=== PATIENT | female | born 1990 | race Caucasian/White ===

== ENCOUNTER 2018-06-20 13:54 | Outpatient (CLI) | payer BC ==
--- NOTE | 2018-06-20 16:15 | ULT ---
GALLBLADDER ULTRASOUND: HISTORY: Right upper quadrant pain. FINDINGS: Real-time imaging of the right upper quadrant was performed. This shows multiple echogenic foci with in the gallbladder, consistent with gallstones. The common duct is 3 mm. The technologist reports a negative ultrasound Aguilar sign. The liver parenchymal is unremarkable. The liver measures 14 cm in length. The pancreas is obscured . The right kidney is normal in size and not obstructed. IMPRESSION: Multiple cholelithiasis, with a normal caliber common duct. POS: MATIASH
== END 2018-06-20 13:55 | disposition home or self-care (01) ==
LOC: SCSULT 13:54
PROVIDERS: ATTEND Family Medicine
DX: R10.11 Right upper quadrant pain (principal); K80.20 Calculus of gallbladder without cholecystitis without obstruction
CPT/HCPCS: 76705

== ENCOUNTER 2018-06-28 07:50 | Day surgery (SDC) | payer BC ==
--- NOTE | 2018-06-26 19:06 | HP ---
HISTORY OF PRESENT ILLNESS: Ms. Britney Foote is a 27-year-old female management for , gr avida 1, para 1. Recently diagnosed with celiac disease, but has had biliary type symptoms for sever al years. She had a particularly severe episode of epigastric pain with back radiation, nausea, pres ented to Urgent Care. Ultrasound confirming gallstones, normal bile duct caliber on 06/19/2018. LABORATORY DATA: White count 8, hemoglobin 13. Chemistries normal. Base met normal obtained. Plan is for a laparoscopic cholecystectomy as an outpatient in the next 48 hours. She understands ri sks of infection, bleeding, visceral and biliary injury and consents. ALLERGIES: None. TOBACCO: None. ALCOHOL: None. PAST SURGICAL HISTORY: Tonsillectomy, adenoidectomy. PAST MEDICAL HISTORY: Celiac disease, recently diagnosed. REVIEW OF SYSTEMS: Ten point noncontributory. FAMILY HISTORY: Noncontributory. PHYSICAL EXAMINATION: VITAL SIGNS: Weight 177 pounds, 65 inches, 29 BMI, 107/53, 66, 98.6 degrees. HEENT: Unremarkable. Sclerae nonicteric. SKIN: Nonjaundiced. NECK: Axilla, groins without lymphadenopathy. Ankles without edema. LUNGS: Clear to auscultation. CARDIAC: Regular rate and rhythm. No murmur or gallop. ABDOMEN: Soft. Mild tenderness in the right upper quadrant with mild guarding, no peritoneal signs, no rebound. EXTREMITIES: Unremarkable. ASSESSMENT: Cholecystitis, chronic, cholelithiasis. Recommend laparoscopic video cholecystectomy. Risk of infection, bleeding, visceral and biliary injury explained. Questions answered. PLAN: Laparoscopic cholecystectomy in the next 48 hours.
[2018-06-27 09:50] VITALS: BMI 29.4
[2018-06-28] MEDS ORDERED: Bupivacaine HCl 0.5%/Epinephrine 1:200,000/PF 30 ml Vial ONE (08:21)
[2018-06-28] MEDS ORDERED: Ketorolac Tromethamine 30 MG/ML VIAL ONE (08:48)
[2018-06-28] MEDS ORDERED: Levofloxacin 500 mg/D5W 100 ml Premix Bag ONE (08:48)
[2018-06-28] MEDS ORDERED: Midazolam HCl 2 mg/2 ml Vial ONE (08:49)
[2018-06-28 09:18] LABS: BHCG - Serum Negative (NEGATIVE); Pregs Control Background? CLEAR/WHITE (CLR/WHITE); Pregs Control Bar Appear? YES (CONTROL BAR)
[2018-06-28] MEDS ORDERED: Fentanyl 250 MCG/5 ML VIAL ONE (10:29)
--- NOTE | 2018-06-28 11:22 | OP ---
DATE OF OPERATION: 06/28/2018 PREOPERATIVE DIAGNOSES: Chronic cholecystitis, cholelithiasis, cystic duct obstruction. POSTOPERATIVE DIAGNOSES: Chronic cholecystitis, cholelithiasis, cystic duct obstruction. PROCEDURE: Laparoscopic video cholecystectomy. SURGEON: Abdelrahman Ta M.D. ANESTHESIA: General. Local 0.5% Marcaine with epinephrine, 30 mL total volume mixture used. PROCEDURE IN DETAIL: The patient was taken to the operating room where under general anesthesia, abd omen was prepared with ChloraPrep, draped in routine fashion. Local anesthetic to prevent skin and s ubcutaneous tissue about all port sites. Infraumbilical incision made. Pneumoperitoneum to 15 mmHg obtained with the Veress needle, replacing it with a 5 port and video laparoscope inserted. Right younger bxiphoid incision made and 11 port placed. Right subcostal incision made mid clavicular anterior axi llary lines and 5 ports placed. Fundus of the gallbladder grasped and reflected cephalad. Liver beba eared to be normal. There were a few omental adhesions to the liver bed, but I did not have to take them down. Infundibulum grasped and reflected laterally. Cystic artery and duct dissected free. Cr itical view obtained. Cystic artery and duct doubly clipped proximally, divided, and gallbladder dis sected free from the liver bed obtaining good hemostasis prior to division of final peritoneal attach ments. Gallbladder and multiple stones removed and submitted to Pathology. Good hemostasis ensured with the cautery. Irrigant and pneumoperitoneum evacuated. All this instruments removed and all ski n incisions approximated with interrupted subdermal 4-0 Monocryl and DermaGlue applied.
[2018-06-28] MEDS ORDERED: traMADol HCl 50 MG TAB ONE (12:05)
[2018-06-28] MEDS ORDERED: Lidocaine 1% PF 5 ML VIAL ONE (15:31)
[2018-06-28] MEDS ORDERED: PROPOFOL 200 MG/20 ML VIAL ONE (15:31)
[2018-06-28] MEDS ORDERED: Succinylcholine Chloride 20 MG/ML 10 ml SYRINGE FS ONE (15:31)
[2018-06-28] MEDS ORDERED: Ondansetron HCl/PF 4 MG/2 ML Vial ONE (15:31)
[2018-06-28] MEDS ORDERED: Dexamethasone 20 MG/5 ML VIAL ONE (15:31)
[2018-06-28] MEDS ORDERED: Glycopyrrolate 0.2 MG/ML 5 ML SYRINGE ONE (15:31)
[2018-06-28] MEDS ORDERED: Vecuronium 10 MG VIAL ONE (15:31)
== END 2018-06-28 12:37 | disposition home or self-care (01) ==
LOC: SDC 07:50
PROVIDERS: ATTEND Specialist
PROC: 0FT44ZZ Resection of Gallbladder, Percutaneous Endoscopic Approach (ICD-10-PCS; principal; 2018-06-28)
DX: K80.10 Calculus of gallbladder with chronic cholecystitis without obstruction (principal)
CPT/HCPCS: 84703; 88304; J0131; J0670; J1100; J1885; J1956; J2001; J2250; J2405; J2704; J3010

== ENCOUNTER 2018-08-17 12:39 | Outpatient (CLI) | payer BC ==
--- NOTE | 2018-08-17 15:54 | RAD ---
HYSTEROSALPINGOGRAM: 08/17/18 INDICATION: Menstrual abnormality. FLUORO TIME: 0.8 minutes. TOTAL EXPOSURE: 488 Gy*m2. TECHNIQUE AND FINDINGS: Informed consent was obtained. The patient on day seven following her day of menstrual period. The pa kate has had no sexual intercourse since her menstrual period. Patient was not actively spotting leonor or to the examination. The patient was placed supine on the fluoroscopic table and then eventually pl aced in the lithotomy position. A speculum was placed. The cervix was then sterilized with betadine s olution. A alaniz device was guided down into the cervical os to demonstrate patency of the internal ce rvical os. Following this, the catheter was then placed within the uterine cavity and a small balloon was deployed. Once the catheter was fixated within the uterine cavity, the patient was then placed u nder the fluoro table and real time fluoroscopic examination was performed with spot images obtained. There was retrograde opacification of the uterine cavity demonstrating no definite filling defect. There was a smooth invagination noted along the superior margion of the endometrial canal. There was contrast spillage into the fallopian tubes bilaterally freely with spillage into the peritoneal cavit y. The catheter was then removed from the uterus. The vaginal speculum was then removed. Patient zeny rated the procedure without difficulty. IMPRESSION: Normal HSG. Arcuate uterus. POS: ABHISHEK
== END 2018-08-17 12:40 | disposition home or self-care (01) ==
LOC: RAD 12:39
PROVIDERS: ATTEND Family Medicine
DX: N92.6 Irregular menstruation, unspecified (principal); Q51.810 Arcuate uterus
CPT/HCPCS: 58340; 74740

== ENCOUNTER 2019-08-07 08:04 | Inpatient (IN) | payer BC ==
[2019-08-07 23:19] VITALS: BMI 36.1
[2019-08-07] MEDS ORDERED: Lidocaine 1% (PF) 30 ML VIAL SC PRN (23:24)
[2019-08-07] MEDS ORDERED: Ondansetron PF 4 MG/2 ML Vial IVP PRN (23:24)
[2019-08-07] MEDS ORDERED: NS w/ Oxytocin 10 units 500 ML IV SCH ×2 (23:24)
[2019-08-07] MEDS ORDERED: Docusate 100 MG CAP PO PRN (23:24)
[2019-08-07] MEDS ORDERED: Butorphanol Tartrate 1 MG/ML VIAL SLOW IVP PRN (23:24)
[2019-08-07] MEDS ORDERED: Diphenoxylate HCl/Atropine Tablet PO PRN ×2 (23:24)
[2019-08-07] MEDS ORDERED: Misoprostol 200 MCG TAB PR PRN (23:24)
[2019-08-07] MEDS ORDERED: Zolpidem Tartrate 5 MG TAB PO PRN (23:24)
[2019-08-07] MEDS ORDERED: HYDROcodone/Acetaminophen 5/325 mg Tablet PO PRN ×2 (23:24)
[2019-08-07] MEDS ORDERED: Acetaminophen 500 MG TAB PO PRN (23:24)
[2019-08-07] MEDS ORDERED: Promethazine HCl 25 MG/ML VIAL IM PRN (23:24)
[2019-08-07] MEDS ORDERED: NS / Oxytocin 40 units/1000ml 1,000 ML IV PRN (23:24)
[2019-08-07] MEDS ORDERED: hydrALAZINE 20 MG/ML VIAL SLOW IVP PRN (23:24)
[2019-08-07] MEDS ORDERED: Ibuprofen 800 MG TAB PO PRN (23:24)
[2019-08-07] MEDS: Lactated Ringer's 1,000 ML IV SCH (23:38)
[2019-08-07 23:47] LABS: Hemoglobin 12.5 g/dL (12.0-16.0); Mean Corpuscular HGB CONC 35.7 g/dL (32.0-36.0); Mean Corpuscular Hemoglobin 32.3 pg (27.0-31.0); Mean Corpuscular Volume 90.4 fL (78.0-98.0); Mean Platelet Volume 9.9 fL (7.4-10.4); Platelet Count 115 thou/uL (130-400); RBC Distribution Width 12.3 % (11.5-14.5); Red Blood Cell (RBC) Count 3.88 mill/uL (4.20-5.40); White Blood Cell (WBC) Count 10.3 thou/uL (4.8-10.8)
[2019-08-07] MEDS: Misoprostol 100 MCG TAB VAG SCH (23:51)
[2019-08-07] MEDS ORDERED: Penicillin G Potassium 5 MILL.UNITS in Sodium Chloride 0.9% 100 ML IVPB SCH (23:59)
[2019-08-08 00:24] LABS: Hep B Surf Ag Non-Reactive S/CO (NonReactive); Syphilis Antibody Nonreactive (Nonreactive); Syphilis Antibody Index 0.05 S/CO (<1.00 Non-Reactive)
[2019-08-08] MEDS ORDERED: Fentanyl 4 mcg/Bup 0.1% Cadd 100 ML ONE (03:11)
[2019-08-08] MEDS: Lactated Ringer's 1,000 ML IV SCH (03:51)
[2019-08-08] MEDS ORDERED: Lactated Ringer's 500 ML IV PRN (04:20)
[2019-08-08] MEDS ORDERED: Naloxone HCl 0.4 mg/ml Vial IVP PRN ×2 (04:20)
[2019-08-08] MEDS ORDERED: Promethazine HCl 25 MG/ML VIAL IM PRN (04:20)
[2019-08-08] MEDS ORDERED: ePHEDrine/0.9% NaCl/PF SYRINGE 50 mg/10 ml SLOW IVP PRN (04:20)
[2019-08-08] MEDS ORDERED: Ondansetron PF 4 MG/2 ML Vial IVP PRN ×2 (04:20→10:00)
[2019-08-08] MEDS ORDERED: Acetaminophen 325 MG TAB PO PRN (04:20)
[2019-08-08] MEDS ORDERED: diphenhydrAMINE 50 MG/ML VIAL IVP PRN (04:20)
[2019-08-08] MEDS: Penicillin G 2.5 MILL.units 2.5 MILL.UNITS in Premix Bag 1 BAG IVPB SCH ×2 (04:29→08:47)
[2019-08-08] MEDS ORDERED: Communication Order-Pharmacy FS SCH (04:30)
[2019-08-08] MEDS ORDERED: Fentanyl 4 mcg/Bupivacaine 0.1% Cassette 100 ML EPIDURAL SCH (04:30)
[2019-08-08] MEDS: Misoprostol 100 MCG TAB VAG SCH ×2 (04:39→07:42)
[2019-08-08] MEDS ORDERED: diphenhydrAMINE 25 MG CAP PO PRN (10:00)
[2019-08-08] MEDS ORDERED: Acetaminophen/Codeine 30-300mg Tablet PO PRN ×2 (10:00)
[2019-08-08] MEDS ORDERED: Benzocaine-Menthol 82.5 ML CAN TOP PRN (10:00)
[2019-08-08] MEDS ORDERED: Adacel (T-DAP) 0.5 ML SYRINGE IM ONE (10:00)
[2019-08-08] MEDS ORDERED: Lanolin Ointment 7 GM TUBE TOP PRN (10:00)
[2019-08-08] MEDS ORDERED: Milk Of Magnesia 30 ML UDCUP PO PRN (10:00)
[2019-08-08] MEDS ORDERED: hydrALAZINE 20 MG/ML VIAL SLOW IVP PRN (10:00)
[2019-08-08] MEDS ORDERED: Zolpidem Tartrate 5 MG TAB PO PRN (10:00)
[2019-08-08] MEDS ORDERED: Preparation H Ointment 28 GM TUBE PR PRN (10:00)
[2019-08-08] MEDS ORDERED: Bisacodyl 10 MG SUPP PR PRN (10:00)
[2019-08-08] MEDS ORDERED: NS / Oxytocin 40 units/1000ml 1,000 ML IV SCH (10:00)
[2019-08-08] MEDS ORDERED: Misoprostol 200 MCG TAB VAG PRN (10:00)
[2019-08-08] MEDS: Ibuprofen 800 MG TAB PO SCH ×2 (14:50→21:10)
[2019-08-08] MEDS: Docusate Calcium (SURFAK) 240 MG CAP PO SCH (21:10)
[2019-08-08] MEDS: Ferrous Sulfate 325 MG TAB PO SCH (22:27)
[2019-08-09] MEDS: Ibuprofen 800 MG TAB PO SCH ×3 (05:23→14:17)
[2019-08-09] MEDS: Ferrous Sulfate 325 MG TAB PO SCH ×2 (07:56→17:25)
[2019-08-09] MEDS: Misoprostol 100 MCG TAB VAG SCH (08:51)
[2019-08-09] MEDS: Penicillin G 2.5 MILL.units 2.5 MILL.UNITS in Premix Bag 1 BAG IVPB SCH ×2 (08:51→08:52)
[2019-08-09 08:56] VITALS: BP 98/55; TEMP 98
[2019-08-09] MEDS: Prenatal Vitamin 1 TAB PO SCH ×2 (09:31→09:32)
[2019-08-09] MEDS: Docusate Calcium (SURFAK) 240 MG CAP PO SCH (09:31)
== END 2019-08-09 18:15 | disposition home or self-care (01) | DRG 806 ==
LOC: L&D 22:49 → 3SW 08-08 13:07
PROVIDERS: ADMIT Obstetrics & Gynecology; ATTEND Obstetrics & Gynecology
PROC: 10E0XZZ Delivery of Products of Conception, External Approach (ICD-10-PCS; principal; 2019-08-07)
PROC: 10907ZC Drainage of Amniotic Fluid, Therapeutic from Products of Conception, Via Natural or Artificial Opening (ICD-10-PCS; 2019-08-07)
PROC: 3E0P7VZ Introduction of Hormone into Female Reproductive, Via Natural or Artificial Opening (ICD-10-PCS; 2019-08-07)
DX: O99.824 Streptococcus B carrier state complicating childbirth (principal); O98.52 Other viral diseases complicating childbirth; Z37.0 Single live birth; Z3A.39 39 weeks gestation of pregnancy; B00.9 Herpesviral infection, unspecified; Z79.899 Other long term (current) drug therapy; O69.2XX0 Labor and delivery complicated by other cord entanglement, with compression, not applicable or unspecified
CPT/HCPCS: 36415; 51702; 85027; 86780; 86850; 86900; 86901; 87340; J0595; J2405; J2540; J2590; J3490